=== PATIENT | male | born 1965 | race Caucasian/White ===

== ENCOUNTER 2016-08-24 12:30 | Inpatient (IN) | payer OTHER ==
[~2016-08-24] VITALS: Ht 180.3 cm; Wt 93.6 kg
[~2016-08-24 12:30] MED LIST: AMLO10TA4 PO; APR25 PO; CALC1TAB23 PO; CHOL2000 PO; CYCL1CAP22 PO; RCL25 PO; SODI650T9 PO
[2016-08-24] MEDS ORDERED: ASPI81TA28 PO (15:25)
[2016-08-24 15:30] VITALS: BP 172/94; PULSE 76; TEMP 36.6; Ht 180.3 cm; Wt 93.6 kg
[2016-08-24] MEDS ORDERED: ONDANSETRON INJ 2 MG/ML 2 ML VIAL IV PRN (15:30)
[2016-08-24] MEDS ORDERED: ACETAMINOPHEN 325 MG TAB PO PRN (15:30)
[2016-08-24] MEDS ORDERED: CALC667C4 PO (15:51)
[2016-08-24] MEDS ORDERED: VTMD PO (15:51)
[2016-08-24] MEDS ORDERED: APR50 PO (15:51)
--- NOTE | 2016-08-24 16:26 | History and Physical ---
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 Mason's office. Pt has a longstanding history of membranous nephropathy. Renal function has declined to the point that patient is now requiring dialysis. Plan is to have catheter placed tomorrow by Dr. Her so that dialysis can be initiated. Pt is currently feeling well and has no complaints. Pt denies fever/chills, chest pain, SOB, abd pain, N/V, bowel or bladder issues, worsening LE edema ,calf pain, lightheadedness/dizziness. Past Medical/Surgical History Medical Problems: (1) Chart history of sleep apnea Permanent Comment: never tested as per Status: Chronic (2) Dyslipidemia Status: Chronic (3) Dyslipidemia Status: Chronic (4) HTN (hypertension) Status: Chronic (5) Membranous glomerulonephritis Status: Chronic (6) Renal vein thrombosis Status: Chronic Surgical Problems: (1) S/p renal biopsy Status: Resolved Family History Diabetes mellitus MOTHER FH: CAD (coronary artery disease) FATHER BROTHER Social History Smoking Status: Former Smoker (2 cigs per day x 20 years; quit 08/02/2015) Alcohol Use: socially Drug Use: none Marital Status: Housing status: lives with family Occupational Status: employed Multi-Drug Resistant Organisms History of MDRO: No Allergies Coded Allergies: JOSSY Inhibitors (Verified Allergy, Unknown, UNKNOWN, 11/20/14) Losartan (Verified Allergy, Unknown, ., 11/20/14) NSAIDs (Verified Allergy, Unknown, ., 11/20/14) Home Medications Scheduled Amlodipine Besylate (Norvasc), 1 TAB PO DAILY Aspirin (Aspirin Ec), 81 PO DAILY Calcitriol (Calcitriol), 0.25 MCG PO MoWeFr@0900 Calcium Acetate (Phoslo 667 Mg), 3 CAPSULES PO WM Cyclosporine Modified (For Caesar (Cyclosporine Modified), 150 MG PO BID Ergocalciferol (Vitamin D), 50,000 UNITS PO DAILY Hydralazine HCl (Hydralazine HCl), 50 MG PO TID Sodium Bicarbonate (Sodium Bicarbonate), 650 MG PO BID Review of Systems Constitutional: No chills, No fatigue, No fever, No sweats, No weakness Eyes: No worsening of vision ENT: No hearing loss Respiratory: No cough, No shortness of breath Cardiovascular: + edema (chronic), No chest pain, No claudication Abdomen: No constipation, No diarrhea, No nausea, No pain, No vomiting Musculoskeletal: No calf pain Genitourinary - Male: No dysuria Neurologic: No weakness Psychiatric: No depression symptoms Endocrine: No fatigue Hematologic / Lymphatic: No abnormal bleeding/bruising Integumentary: No new/changing skin lesions Physical Exam General Appearance: WD/WN, no apparent distress, + pertinent finding (Pt is sitting in chair beside bed with in room ) Head: normocephalic, atraumatic Eyes: normal inspection ENT: hearing grossly normal Neck: supple Respiratory/Chest: chest non-tender, lungs clear, normal breath sounds, no respiratory distress Cardiovascular: regular rate, rhythm, no murmur Abdomen/GI: normal bowel sounds, non tender, soft Back: normal inspection Extremities/Musculoskelatal: normal inspection, no calf tenderness, + swelling (1+ pitting edema bilat) Neurologic/Psych: alert, normal mood/affect, oriented x 3 Skin: normal color, warm/dry Diagnostics Laboratory Results Results Past 24 Hours Test 08/24/16 15:27 Range/Units Impression Assessment and Plan ESRD WITH UNDERLYING MEMBRANOUS NEPHROPATHY pt sent as direct admit by Dr. Mason for ESRD requiring initiation of dialysis -admit to med/surg -obtain basic labs, CXR and EKG -cont Cyclosporine, sodium bicarb, calcitriol and PhosLo -consult nephro, Dr. Roach-pending input -consult Dr. Her-plan for dialysis catheter placement tmrw -monitor HTN -BP stable -cont Norvasc and hydralazine -monitor DYSLIPIDEMIA -diet-controlled DVT PROPHYLAXIS -subq heparin CODE STATUS -FULL CODE status DISPO -Pt seen in collaboration with Dr. Salgado. Please see his addendum for further details. Thanks! Of note: patient will be followed by Dr. Vasquez starting tomorrow. VTE Prophylaxis VTE Risk Assessment Done? Y/N: Yes Risk Level: Moderate Given or contraindicated: SCD's Note ATTENDING ADDENDUM Record reviewed. Patient interviewed and examined. Care coordinated with Jolie Cosby PA-C. Please refer to her documentation for patient's history. Briefly, 51 YO male with membranous nephropathy. Rising creatinine and worsening fluid retention. Being admitted for hemodialysis access and initiation of hemodialysis treatments. EXAM: General- no distress VS- as noted Neck- + JVD Lungs- clear Heart- RRR, II/ sys murmur at base Abdomen- + BS, soft, nontender Extremities- 3+ pretibial edema Neuro- alert DATA: Hgb 7.7. BUN 67, creatinine 7.3, K 4.4. Other lab studies as noted. ASSESSMENT AND PLAN: Progressive CKD, now in need of hemodialysis. Vascular Surgery consulted for vascular access. Nephrology consulted for dialysis management. Please refer to MAKEDA Cosby's documentation for discussion of other issues. Gama Salgado MD .
[2016-08-24] MEDS ORDERED: PNEUMOCOCCAL POLYSACCHARIDES 25 MCG/0.5 ML VIAL/SYR IM. ONE (16:30)
[2016-08-24] MEDS ORDERED: PNEUMOCOCCAL ADMINISTRATION CHARGE ONE (16:30)
--- NOTE | 2016-08-24 16:33 | DIAGNOSTIC IMAGING REPORT ---
CHEST 2 VIEWS ROUTINE CLINICAL HISTORY: End stage renal disease COMPARISON STUDY: No previous studies for comparison. FINDINGS: The cardiac and mediastinal contours are normal. There is no evidence of focal pulmonary consolidation. There is no evidence of failure. No pleural effusions are visualized.[ IMPRESSION: No active disease in the chest. Electronically signed by: Milad Webster M.D. 08/24/2016 4:32 PM Dictated Date/Time: 08/24/2016 4:31 PM
[2016-08-24 16:47] LABS: HEMATOCRIT 22.2 % (42-52); MEAN CELL VOLUME 86.7 fL (80-100); MEAN CORPUSCULAR HEMOGLOBIN 30.1 pg (25-34); MEAN CORPUSCULAR HGB CONC 34.7 g/dl (32-36); PLATELET COUNT 291 K/uL (130-400); RED BLOOD COUNT 2.56 M/uL (4.7-6.1); WHITE BLOOD COUNT 8.97 K/uL (4.8-10.8)
[2016-08-24 16:59] LABS: PROTHROMBIN TIME (PATIENT) 10.2 SECONDS (9.0-12.0)
[2016-08-24 17:19] LABS: BASO % 0.7 %; BASO ABS # 0.06 K/uL (0-0.2); COMPLETE YES; EOS % 2.5 %; IG% 0.2 %; LYMPH % 15.5 %; LYMPH ABS # 1.39 K/uL (1.2-3.4); MICROCYTOSIS PRESENT; NEUT % 76.1 %; OVALOCYTES 1+
[2016-08-24] MEDS: CALCIUM ACETATE 667MG GELCAP PO SCH (17:28)
[2016-08-24 17:36] LABS: ALB/GLOB RATIO 0.7 (0.9-2); BUN/CREATININE RATIO 9.2 (10-20); CALCIUM 8.4 mg/dl (8.5-10.1); CREATININE 7.3 mg/dl (0.60-1.40); MAGNESIUM 1.9 mg/dl (1.8-2.4); POTASSIUM 4.4 mmol/L (3.5-5.1)
[2016-08-24 19:06] LABS: HEPATITIS B AB POS
--- NOTE | 2016-08-24 20:07 | Nephrology Consultation ---
Nephrology Consultation Date of Consultation: Aug 24, 2016. Attending Physician: Dr Salgado Requesting Physician: Dr Salgado Reason for Consultation: CKD5 > ESRD needing dialysis History of Present Illness 51 year old male w/ recurrent membranous nephropathy despite CTX and progressive renal dysfunction now ESRD has had progressive worsening of creatinine and more edema: advised by Dr Mason to come to [facility] for direct admission to get tunnelled dialysis catheter and start chronic hemodialysis. Other PMH includes SANDEEP, renal vein thrombosis, HTN w/ hx of HTN urgency per outpt cardiology note d/t nonadherence. He has upcoming renal txplt eval late next month. He ultimately is interested in peritoneal dialysis but his renal function unfortunately deteriorated before this could be arranged. He remains on cyclosporine. Pt works full time staff interpreter and is anxious about how to blend work and dialysis treatment schedule. Plans to do HD in [facility]. States he has been off of lasix for some time. Past Medical/Surgical History Medical Problems: (1) Acute kidney injury superimposed on CKD Status: Acute (2) Anemia Status: Acute (3) Head ache Status: Acute (4) Hypertensive emergency Status: Acute as per HPI Family History Diabetes mellitus MOTHER FH: CAD (coronary artery disease) FATHER BROTHER Social History Smoking Status: Former Smoker (2 cigs per day x 20 years; quit 08/02/2015) Alcohol Use: none Drug Use: none Marital Status: Housing Status: lives with family Occupation Status: employed Allergies Coded Allergies: JOSSY Inhibitors (Verified Allergy, Unknown, UNKNOWN, 11/20/14) Losartan (Verified Allergy, Unknown, ., 11/20/14) NSAIDs (Verified Allergy, Unknown, ., 11/20/14) Medications Current Inpatient Medications Medications (Trade) Dose Ordered Sig/Martina Route Start Time Stop Time Status Last Admin Dose Admin Acetaminophen (Tylenol Tab) 650 mg Q4H PRN PO 08/24/16 15:30 09/23/16 15:29 Ondansetron HCl 4 mg 4 mg Q6H PRN IV 08/24/16 15:30 09/23/16 15:29 Cefazolin Sodium (Ancef 2000mg/60 ml D5W) 60 ml @ 100 mls/hr PREOP IV 08/25/16 06:00 08/25/16 18:00 Amlodipine Besylate (Norvasc Tab) 10 mg DAILY PO 08/25/16 08:00 09/24/16 07:59 Aspirin (Ecotrin Tab) 81 mg DAILY PO 08/25/16 08:00 09/24/16 07:59 Future Hold Calcitriol (Rocaltrol Cap) 0.25 mcg MoWeFr@0900 PO 08/25/16 09:00 09/24/16 08:59 Calcium Acetate (Phoslo Cap) 2,001 mg TIDM PO 08/24/16 17:00 09/23/16 19:59 08/24/16 17:28 2,001 MG Ergocalciferol (Vitamin D Cap) 50,000 interunit DAILY PO 08/25/16 08:00 09/24/16 07:59 Hydralazine HCl (Apresoline Tab) 50 mg TID PO 08/24/16 20:00 09/23/16 19:59 Sodium Bicarbonate (Sodium Bicarbonate Tab) 650 mg BID PO 08/24/16 20:00 09/23/16 19:59 Cyclosporine (Neoral Cap) 150 mg BID PO 08/24/16 20:00 09/23/16 19:59 Home Meds and Scripts Medications Dose Route/Sig Max Daily Dose Days Date Category Hydralazine HCl 50 Mg Tab 50 Mg PO TID 08/24/16 Reported Vitamin D (Ergocalciferol) 50,000 Interunit Cap 50,000 Units PO DAILY 08/24/16 Reported Phoslo 667 Mg (Calcium Acetate) 667 Mg Cap 3 Capsules PO WM 08/24/16 Reported Aspirin Ec (Aspirin) 81 Mg Tab 81 PO DAILY 08/24/16 Reported Calcitriol 0.25 Mcg Cap 0.25 Mcg PO MOWEFR@0900 30 06/07/16 Rx Sodium Bicarbonate 650 Mg Tab 650 Mg PO BID 30 06/07/16 Rx Norvasc (Amlodipine Besylate) 10 Mg Tab 1 Tab PO DAILY 90 06/07/16 Rx Cyclosporine Modified (Cyclosporine Modified (For Caesar) 50 Mg Cap 150 Mg PO BID 06/05/16 Reported Review of Systems Constitutional: No chills, No fatigue, No fever, No sweats, No weakness Eyes: No worsening of vision ENT: No hearing loss Respiratory: No cough, No dyspnea at rest, No dyspnea on exertion Cardiac: + edema, No chest pain, No palpitations Abdomen: + problem reported (denies anorexia), No diarrhea, No nausea, No pain , No vomiting Musculoskeletal: + swelling, No joint pain, No muscle pain Male : No dysuria, No hematuria, No urinary frequency Physical Exam Date Time Temp Pulse Resp B/P Pulse Ox O2 Delivery O2 Flow Rate FiO2 08/24/16 15:30 36.6 76 20 172/94 Room Air General Appearance: WD/WN, no apparent distress Eyes: EOMI ENT: hearing grossly normal Neck: supple Respiratory/Chest: no respiratory distress, no accessory muscle use, + decreased breath sounds Cardiovascular: regular rate, rhythm, + systolic murmur Abdomen: normal bowel sounds, non tender, soft Extremities: + pedal edema, + pertinent finding (edema to mid BL thighs; 3+ pedal) Neurologic/Psych: alert, normal mood/affect, oriented x 3 (ambulatory w/o asst) Skin: no jaundice, warm/dry, no rash (flushed fascies) Diagnostics Last 24 Hours Test 08/24/16 16:35 08/24/16 18:29 White Blood Count 8.97 K/uL Red Blood Count 2.56 M/uL Hemoglobin 7.7 g/dL Hematocrit 22.2 % Mean Corpuscular Volume 86.7 fL Mean Corpuscular Hemoglobin 30.1 pg Mean Corpuscular Hemoglobin Concent 34.7 g/dl Platelet Count 291 K/uL Mean Platelet Volume 9.0 fL Neutrophils (%) (Auto) 76.1 % Lymphocytes (%) (Auto) 15.5 % Monocytes (%) (Auto) 5.0 % Eosinophils (%) (Auto) 2.5 % Basophils (%) (Auto) 0.7 % Neutrophils # (Auto) 6.83 K/uL Lymphocytes # (Auto) 1.39 K/uL Monocytes # (Auto) 0.45 K/uL Eosinophils # (Auto) 0.22 K/uL Basophils # (Auto) 0.06 K/uL RDW Standard Deviation 43.7 fL RDW Coefficient of Variation 13.9 % Immature Granulocyte % (Auto) 0.2 % Immature Granulocyte # (Auto) 0.02 K/uL Microcytosis PRESENT Ovalocytes 1+ Prothrombin Time 10.2 SECONDS Prothromb Time International Ratio 1.0 Sodium Level 145 mmol/L Potassium Level 4.4 mmol/L Chloride Level 114 mmol/L Carbon Dioxide Level 20 mmol/L Anion Gap 11.0 mmol/L Blood Urea Nitrogen 67 mg/dl Creatinine 7.30 mg/dl Est Creatinine Clear Calc Drug Dose 13.8 ml/min Estimated GFR () 9.0 Estimated GFR (Non- 7.8 BUN/Creatinine Ratio 9.2 Random Glucose 119 mg/dl Calcium Level 8.4 mg/dl Magnesium Level 1.9 mg/dl Total Bilirubin 0.3 mg/dl Aspartate Amino Transf (AST/SGOT) 11 U/L Alanine Aminotransferase (ALT/SGPT) 14 U/L Alkaline Phosphatase 86 U/L Total Protein 5.9 gm/dl Albumin 2.4 gm/dl Globulin 3.5 gm/dl Albumin/Globulin Ratio 0.7 Diagnostic Radiology: CXR > no active cardiopulmonary disease EKG: NSR Assessment & Plan 51 y/o M w/ membranous nephropathy refractory to chemotherapy now w/ ESRD and uncontrolled HTN, notable anemia even in the setting of CKD 5 for a pt on outpt procrit. -for TDC placement tentatively in AM -for first dialysis treatment on 08/25, assuming TDC placed, then second tx on depending on whether / how quickly outpt HD can be arranged -daily bmp, cbc -continue cyclosporine for now and other outpt meds -will change some outpt meds once he actually starts HD -renal diet and 1. 5L fluid limit, < 2 gm daily Na pls -believe his bp will improve w/ routine administration of his medications >> no sx / signs of HTN emergency -will give aggressive procrit with HD; last labs in [facility] are hgb in low 9's in 06/2016; since then some issues w/ getting [facility] labs done and to [facility] anemia clinic > may have missed some epo doses -serum chemistries currently acceptable; no indication at this time for UA Appreciate consult; will follow with you.
[2016-08-24] MEDS: CycloSPORINE (NEORAL) 25 MG CAP PO SCH (20:10)
[2016-08-24] MEDS: SODIUM BICARBONATE 650 MG TAB PO SCH (20:11)
[2016-08-24 20:12] VITALS: BP 162/85; PULSE 73
[2016-08-25] VITALS (28 sets, daily range): BP systolic 136–176; BP diastolic 68–101; PULSE 63–80; TEMP 36.4–36.8; O2SAT 93–98
[2016-08-25] MEDS ORDERED: CEFAZOLIN 2000 MG/60 ML D5W 60 ML IV SCH (06:00)
[2016-08-25] MEDS: AMLODIPINE BESYLATE 5 MG TAB PO SCH ×2 (08:00→16:45)
[2016-08-25] MEDS ORDERED: ASPIRIN 81 MG ECTAB PO SCH (08:00)
[2016-08-25] MEDS: CALCIUM ACETATE 667MG GELCAP PO SCH ×3 (08:00→16:44)
[2016-08-25] MEDS ORDERED: EPOETIN ALFA 10,000 UNITS/ML VIAL IV. ONE (08:00)
[2016-08-25] MEDS ORDERED: ERGOCALCIFEROL 50,000 INTER.UNIT CAP PO SCH (08:00)
[2016-08-25] MEDS ORDERED: EPOETIN ALFA INJ 12,000 UNITS in SYRINGE 0 ML IV. SCH (08:00)
[2016-08-25] MEDS: SODIUM BICARBONATE 650 MG TAB PO SCH (08:00)
[2016-08-25] MEDS: CycloSPORINE (NEORAL) 25 MG CAP PO SCH (08:00)
[2016-08-25 08:20] LABS: HEMATOCRIT 20.3 % (42-52); MEAN CELL VOLUME 86.8 fL (80-100); MEAN CORPUSCULAR HEMOGLOBIN 30.3 pg (25-34); MEAN PLATELET VOLUME 9.5 fL (7.4-10.4); PLATELET COUNT 267 K/uL (130-400); RED BLOOD COUNT 2.34 M/uL (4.7-6.1); WHITE BLOOD COUNT 5.69 K/uL (4.8-10.8)
[2016-08-25 08:29] LABS: BUN/CREATININE RATIO 9.9 (10-20); CREATININE 7.2 mg/dl (0.60-1.40); POTASSIUM 4.4 mmol/L (3.5-5.1)
--- NOTE | 2016-08-25 08:42 | Surgery Consultation ---
Consultation Date of Service Aug 25, 2016. Chief Complaint acute on chronic renal failure History of Present Illness The patient is a 51 year old male with hx of CKD d/t membranous nephropathy, HTN , dyslipidemia, seen in consultation today for insertion of permcath for HD d/t acute on chronic renal failure. Pt states feeling ok. Denies SHAH, fever, chills , recent illness, chest pain, SOB, abd pain, N/V, rest pain, claudication, other complaints. Vitals Vital Signs Past 12 Hours Date Time Temp Pulse Resp B/P Pulse Ox O2 Delivery O2 Flow Rate FiO2 08/25/16 07:47 36.4 73 18 169/93 98 Room Air 08/25/16 00:50 36.8 73 20 136/68 93 Room Air 08/25/16 00:00 Room Air Allergies Coded Allergies: JOSSY Inhibitors (Verified Allergy, Unknown, UNKNOWN, 11/20/14) Losartan (Verified Allergy, Unknown, ., 11/20/14) NSAIDs (Verified Allergy, Unknown, ., 11/20/14) Home Medications Scheduled Amlodipine Besylate (Norvasc), 1 TAB PO DAILY Aspirin (Aspirin Ec), 81 PO DAILY Calcitriol (Calcitriol), 0.25 MCG PO MoWeFr@0900 Calcium Acetate (Phoslo 667 Mg), 3 CAPSULES PO WM Cyclosporine Modified (For Caesar (Cyclosporine Modified), 150 MG PO BID Ergocalciferol (Vitamin D), 50,000 UNITS PO DAILY Hydralazine HCl (Hydralazine HCl), 50 MG PO TID Sodium Bicarbonate (Sodium Bicarbonate), 650 MG PO BID Problem List Medical Problems: (1) Chart history of sleep apnea (2) Dyslipidemia (3) Dyslipidemia (4) ESRD (end stage renal disease) (5) HTN (hypertension) (6) Membranous glomerulonephritis (7) Renal vein thrombosis Surgical Problems: (1) S/p renal biopsy Surgical / Medical History Hx Cardiac Surgery: No Hx Abdominal Surgery: No Hx Cancer Surgery: No Hx Thoracic Surgery: No Hx Orthopedic: No Hx Urinary Tract Surgery: No HX Other Surgery: Yes Past Medical/Surgical History: High Cholesterol, Hypertension, Kidney Disease Family History Diabetes mellitus MOTHER FH: CAD (coronary artery disease) FATHER BROTHER Social History Smoking Status: Former Smoker (2 cigs per day x 20 years; quit 08/02/2015) Hx Tobacco Use In Past Year?: Yes Hx Alcohol Use - Type & Amnt: No Hx Substance Use -Type & Amnt: No Review of Systems Constitutional: No chills, No fever, No malaise Skin: No change in color Eyes: No visual changes ENMT: No sore throat Respiratory: No FOWLER, No cough, No hemoptysis, No short of breath Cardiovascular: No edema, No intermittent claudication Gastrointestinal: No abdominal pain, No nausea, No vomiting Neurologic: No dizziness, No headache, No lethargy, No numbness, No tingling Physical Exam Constitutional: General Apperance: well-nourished, well-developed Level of Distress: chronically ill (mildly) Ambulation: ambulating normally Psychiatric: Mental Status: active & alert, normal mood, normal affect Orientation: oriented except where noted, to time, to place, to person Memory: recent memory normal, remote memory normal Head: normocephalic, atraumatic Eyes: EOM: EOMI ENMT: normal ENT inspection, hearing grossly normal Neck: supple, trachea midline Lungs: Respiratory effort: no dyspnea Auscultation: breath sounds normal, no wheezing, no rales/crackles, no rhonchi Cardiovascular: Apical Impulse: not displaced Heart Auscultation: RRR, no murmurs, no rubs Peripheral Pulses: Pulses: full and equal, in all extremities except if noted Bruits: none appreciated Carotid Pulse: normal on the left, normal on the right Brachial Pulses: normal on the left, normal on the right Radial Pulse: normal on the left, normal on the right Femoral Pulse: normal on the left, normal on the right Posterior Tibialis Pulse: decreased on the left, decreased on the right Dorsalis Pedis Pulse: decreased on the left, decreased on the right Abdomen: Bowel Sounds: normal Inspection & Palpation: soft, non-distended, no tenderness, guarding & rebound Musculoskeletal: normal strength (5/5 throughout), normal tone Extremities: Upper Right: no cyanosis, no edema, no varicosities Upper Left: no cyanosis, no edema, no varicosities Lower Right: no cyanosis, no varicosities, edema (trace) Lower Left: no cyanosis, no varicosities, edema (trace) Neurologic: Cranial Nerves: grossly intact Sensation: grossly intact Assessment and Plan ASSESSMENT and PLAN: Acute on chronic renal failure Pt scheduled for permcath insertion later this AM. Procedure, risks, benefits, and alternatives discussed with pt, he expresses understanding and agreement.
[2016-08-25] MEDS ORDERED: CALCITRIOL 0.25 MCG CAP PO SCH (09:00)
--- NOTE | 2016-08-25 09:14 | Nephrology Progress Note ---
Nephrology Progress Note Date of Service: Aug 25, 2016. Subjective no c/o. still feels tired and admits generally unwell. npo for tdc today. no pain, dyspnea; no change in edema; no nausea; no chest discomfort. long discussion about fitting work and chronic dialysis >> best fit for him is [facility] 3rd shift Objective Date Time Temp Pulse Resp B/P Pulse Ox O2 Delivery O2 Flow Rate FiO2 08/25/16 07:47 36.4 73 18 169/93 98 Room Air 08/25/16 00:50 36.8 73 20 136/68 93 Room Air 08/25/16 00:00 Room Air 08/24/16 20:12 73 162/85 08/24/16 15:30 36.6 76 20 172/94 Room Air Physical Exam: General Appearance: WD/WN, no apparent distress, RA , maneuvers easily for exam Eyes: EOMI ENT: hearing grossly normal Neck: supple Respiratory/Chest: no respiratory distress, no accessory muscle use, + decreased breath sounds Cardiovascular: regular rate, rhythm, + systolic murmur Abdomen: normal bowel sounds, non tender, soft Extremities: + pedal edema, + pertinent finding (edema to mid BL thighs; 3+ pedal) Neurologic/Psych: alert, normal mood/affect, oriented x 3 (ambulatory w/o asst) Skin: no jaundice, warm/dry, no rash (flushed fascies) Current Inpatient Medications Medications (Trade) Dose Ordered Sig/Martina Route Start Time Stop Time Status Last Admin Dose Admin Acetaminophen (Tylenol Tab) 650 mg Q4H PRN PO 08/24/16 15:30 09/23/16 15:29 Ondansetron HCl 4 mg 4 mg Q6H PRN IV 08/24/16 15:30 09/23/16 15:29 Cefazolin Sodium (Ancef 2000mg/60 ml D5W) 60 ml @ 100 mls/hr PREOP IV 08/25/16 06:00 08/25/16 18:00 Amlodipine Besylate (Norvasc Tab) 10 mg DAILY PO 08/25/16 08:00 09/24/16 07:59 Aspirin (Ecotrin Tab) 81 mg DAILY PO 08/25/16 08:00 09/24/16 07:59 Future Hold Calcitriol (Rocaltrol Cap) 0.25 mcg MoWeFr@0900 PO 08/25/16 09:00 09/24/16 08:59 Calcium Acetate (Phoslo Cap) 2,001 mg TIDM PO 08/24/16 17:00 09/23/16 19:59 08/24/16 17:28 2,001 MG Ergocalciferol (Vitamin D Cap) 50,000 interunit DAILY PO 08/25/16 08:00 09/24/16 07:59 Hydralazine HCl (Apresoline Tab) 50 mg TID PO 08/24/16 20:00 09/23/16 19:59 08/24/16 20:08 50 MG Sodium Bicarbonate (Sodium Bicarbonate Tab) 650 mg BID PO 08/24/16 20:00 09/23/16 19:59 08/24/16 20:11 650 MG Cyclosporine (Neoral Cap) 150 mg BID PO 08/24/16 20:00 09/23/16 19:59 08/24/16 20:10 150 MG Heparin Sodium (Porcine) 1 ea 1 ea TODAY@0800 N/A 08/25/16 08:00 08/25/16 23:59 Epoetin Dani/ Syringe (Procrit Inj/ Syringe) 0.6 ml @ 1 mls/min TODAY@0800 IV. 08/25/16 08:00 08/25/16 23:59 Last 24 Hours Test 08/24/16 16:35 08/24/16 18:29 08/25/16 07:10 White Blood Count 8.97 K/uL 5.69 K/uL Red Blood Count 2.56 M/uL 2.34 M/uL Hemoglobin 7.7 g/dL 7.1 g/dL Hematocrit 22.2 % 20.3 % Mean Corpuscular Volume 86.7 fL 86.8 fL Mean Corpuscular Hemoglobin 30.1 pg 30.3 pg Mean Corpuscular Hemoglobin Concent 34.7 g/dl 35.0 g/dl Platelet Count 291 K/uL 267 K/uL Mean Platelet Volume 9.0 fL 9.5 fL Neutrophils (%) (Auto) 76.1 % Lymphocytes (%) (Auto) 15.5 % Monocytes (%) (Auto) 5.0 % Eosinophils (%) (Auto) 2.5 % Basophils (%) (Auto) 0.7 % Neutrophils # (Auto) 6.83 K/uL Lymphocytes # (Auto) 1.39 K/uL Monocytes # (Auto) 0.45 K/uL Eosinophils # (Auto) 0.22 K/uL Basophils # (Auto) 0.06 K/uL RDW Standard Deviation 43.7 fL 43.2 fL RDW Coefficient of Variation 13.9 % 13.7 % Immature Granulocyte % (Auto) 0.2 % Immature Granulocyte # (Auto) 0.02 K/uL Microcytosis PRESENT Ovalocytes 1+ Prothrombin Time 10.2 SECONDS Prothromb Time International Ratio 1.0 Sodium Level 145 mmol/L 140 mmol/L Potassium Level 4.4 mmol/L 4.4 mmol/L Chloride Level 114 mmol/L 110 mmol/L Carbon Dioxide Level 20 mmol/L 17 mmol/L Anion Gap 11.0 mmol/L 13.0 mmol/L Blood Urea Nitrogen 67 mg/dl 71 mg/dl Creatinine 7.30 mg/dl 7.20 mg/dl Est Creatinine Clear Calc Drug Dose 13.8 ml/min 14.0 ml/min Estimated GFR () 9.0 9.2 Estimated GFR (Non- 7.8 7.9 BUN/Creatinine Ratio 9.2 9.9 Random Glucose 119 mg/dl 89 mg/dl Calcium Level 8.4 mg/dl 8.0 mg/dl Magnesium Level 1.9 mg/dl Total Bilirubin 0.3 mg/dl Aspartate Amino Transf (AST/SGOT) 11 U/L Alanine Aminotransferase (ALT/SGPT) 14 U/L Alkaline Phosphatase 86 U/L Total Protein 5.9 gm/dl Albumin 2.4 gm/dl Globulin 3.5 gm/dl Albumin/Globulin Ratio 0.7 Hepatitis B Surface Antigen NEG Hepatitis B Surface Antibody POS Iron Level 87 mcg/dl Total Iron Binding Capacity 232 mcg/dl Transferrin 171 mg/dl Transferrin % Saturation 36 % Assessment & Plan 51 y/o M w/ membranous nephropathy refractory to chemotherapy now w/ ESRD and uncontrolled HTN, notable anemia even in the setting of CKD 5 for a pt on outpt procrit. -for TDC placement today around noon -for first dialysis treatment today, assuming TDC placed, then second tx on depending on whether / how quickly outpt HD can be arranged >> if he has outpt HD for Sunday, he could be d/c after dialysis today ->>>at discharge, pls stop calcitriol, sodium bicarbonate, and cyclosporine ( I stopped these in house) -daily bmp, cbc -renal diet and 1. 5L fluid limit, < 2 gm daily Na pls -defer to primary service whether to give pRBC; personally would prefer to avoid and use aggressive procrit w/ HD if possible -case mgt consult placed for urgent arrangement for dialysis at [facility] 3rd shift; I spent more than 20 minutes discussing his work life, work schedule, and possible dialysis times at 3 different units with this pt in order to decide on unit that fits best into his life; questions sought/answered -serum chemistries currently acceptable; no indication at this time for UA Appreciate consult; will follow with you. Care coordinated w/ MAKEDA Wallace
[2016-08-25] MEDS ORDERED: MIDAZOLAM HCL 1 MG/ML 2ML VIAL ONE (10:45)
[2016-08-25] MEDS ORDERED: FENTANYL CITRATE INJ 50 MCG/1 ML 2 ML VIAL ONE (10:45)
[2016-08-25] MEDS ORDERED: HEPARIN SOD (PORCINE) 5000 UNIT/ML 1 ML VIAL ONE (10:45)
--- NOTE | 2016-08-25 10:51 | Progress Note ---
Progress Note Date of Service Aug 25, 2016. Progress Note Patient for permcath insertion today. Patient was seen, examined, and chart reviewed. Agree with exam and treatment plan of the Vascular PA. I have discussed the risks options and benefits of the procedure with the patient. The patient understands the risks options and benefits and agrees to the procedure.
--- NOTE | 2016-08-25 10:51 | Procedure Note ---
Pre-Mod Sedation Assessment General Date of Moderate Sedation: Aug 25, 2016. Vital Signs: Vital Signs Past 12 Hours Date Time Temp Pulse Resp B/P Pulse Ox O2 Delivery O2 Flow Rate FiO2 08/25/16 10:25 36.4 73 18 169/93 98 Room Air 08/25/16 08:00 98 Room Air 08/25/16 07:47 36.4 73 18 169/93 98 Room Air 08/25/16 00:50 36.8 73 20 136/68 93 Room Air 08/25/16 00:00 Room Air Pre-Sedation Airway Assessment Oral Cavity: WNL Short Thick Neck: No Hx of Sleep Apnea: No Smoking Status: Former Smoker Mallampati Classification: Class I ASA Classification: Class II Notes The planned sedation has been discussed with the patient and consent obtained. I have identified the patient, determined the appropriateness of sedation and have assessed the patient immediately prior to the procedure. All medicine(s) and interventions are by my order.
[2016-08-25] MEDS ORDERED: EPOETIN ALFA IV. SCH (11:00)
[2016-08-25] MEDS ORDERED: FENTANYL CITRATE INJ 50 MCG/1 ML 2 ML VIAL IV ONE (11:22)
[2016-08-25] MEDS ORDERED: HEPARIN SOD (PORCINE) 5000 UNIT/ML 1 ML VIAL IV ONE (11:26)
[2016-08-25] MEDS ORDERED: MIDAZOLAM HCL 1 MG/ML 2ML VIAL IV ONE (11:26)
[2016-08-25] MEDS ORDERED: LIDOCAINE HCL 1% 20 ML VIAL SQ ONE (11:26)
--- NOTE | 2016-08-25 11:35 | Procedure Note ---
Post-Moderate Sedation Plan General Date of Moderate Sedation Aug 25, 2016. Vital Signs: Vital Signs Past 12 Hours Date Time Temp Pulse Resp B/P Pulse Ox O2 Delivery O2 Flow Rate FiO2 08/25/16 10:49 36.4 73 18 169/93 98 Room Air 08/25/16 10:25 36.4 73 18 169/93 98 Room Air 08/25/16 08:00 98 Room Air 08/25/16 07:47 36.4 73 18 169/93 98 Room Air 08/25/16 00:50 36.8 73 20 136/68 93 Room Air 08/25/16 00:00 Room Air Review - Discharge Plan Post Moderate Sedation Plan: On clinical assessment, the patient appears to have tolerated the conscious sedation without complications. Patient is recovering as anticipated. Patient will continue to be monitored by nursing and may be discharged when conscious sedation discharge criteria are met.
--- NOTE | 2016-08-25 11:37 | [facility] Post Operative Brief Note ---
Immediate Operative Summary Operative Date Aug 25, 2016. Pre-Operative Diagnosis End Stage Renal Disease Post-Operative Diagnosis Same Procedure(s) Performed Insertion of Perm Catheter, Right Internal Jugular Approach, Ultrasound Localization of the Right Internal Jugular Vein, Fluoroscopy for positioning, Moderate Sedation from 1122- [address] Her Water Mechanic Surgeon(s) None Estimated Blood Loss 5 Findings Tip in distal SVC Specimens None Anesthesia Local and moderate conscious sedation Complication(s) None Disposition
--- NOTE | 2016-08-25 11:54 | DIAGNOSTIC IMAGING REPORT ---
DATE OF PROCEDURE: 08/25/2016 PREOPERATIVE DIAGNOSIS: End-stage renal failure. POSTOPERATIVE DIAGNOSIS: Same. PROCEDURES: 1. Insertion of PermCath right internal jugular vein. 2. Ultrasound localization right internal jugular vein. 3. Fluoroscopic imaging for positioning. 4. Moderate conscious sedation 12 minutes. SURGEON: Dr. Her. ANESTHETIC: Local with conscious sedation. PROCEDURE INDICATIONS: The patient is a 51-year-old gentleman with acute renal failure in need of dialysis. PermCath was recommended. He understood the risks, options and benefits and agreed to go ahead with this procedure. OPERATION AND FINDINGS: The patient was taken to the angio suite and placed in the supine position. After right side of the neck and chest wall were prepped and draped in a sterile manner, local anesthetic was administered. Using ultrasound, the right internal jugular vein was imaged. It was of good caliber, compressed easily and was patent. A puncture was then made of the right internal jugular vein under ultrasound imaging. The wire was then passed centrally under fluoro. Wire passed into the inferior vena cava from above. Next, a stab wound was made in the anterior chest wall and 19 cm PermCath was inserted through the stab wound in the chest wall and brought out through the puncture site in the neck. The puncture site was then dilated until the 14-Honduran Peel-Away sheath was inserted. The catheter was then pushed down through the Peel-Away sheath and the Peel-Away sheath removed. Tip of the catheter lay in the distal superior vena cava. Catheter was sutured to the anterior chest wall. The puncture site was closed with interrupted 4-0 Vicryl subcuticular suture. Dermabond was used for a dressing for the puncture site. Both ports aspirated and flushed easily and were instilled with heparin. Sterile dressings were applied to the catheter and patient left the angio suite in good condition and tolerated the procedure well.
--- NOTE | 2016-08-25 18:30 | Progress Note ---
Subjective Date of Service: Aug 25, 2016. Subjective Pt evaluation today including: conversation w/ patient, conversation w/ family , physical exam, lab review, review of studies, conversation w/ child development consultant, review of inpatient medication list Saw/examined the patient in room 456-2 He had a tunneled catheter placed today as well as HD tolerated it well No symptoms noted after HD Problem List Medical Problems: (1) Acute kidney injury superimposed on CKD Status: Acute (2) Anemia Status: Acute (3) Head ache Status: Acute (4) Hypertensive emergency Status: Acute Review of Systems Constitutional: No chills, No fever Respiratory: No cough, No dyspnea on exertion, No shortness of breath, No sputum, No wheezing Cardiac: No chest pain, No edema, No palpitations Abdomen: No diarrhea, No nausea, No pain, No vomiting Male : No dysuria, No hematuria, No urinary frequency Medications Current Inpatient Medications Medications (Trade) Dose Ordered Sig/Martina Route Start Time Stop Time Status Last Admin Dose Admin Acetaminophen (Tylenol Tab) 650 mg Q4H PRN PO 08/24/16 15:30 09/23/16 15:29 Ondansetron HCl (Zofran Inj) 4 mg Q6H PRN IV 08/24/16 15:30 09/23/16 15:29 Amlodipine Besylate (Norvasc Tab) 10 mg DAILY PO 08/25/16 08:00 09/24/16 07:59 08/25/16 16:45 10 MG Aspirin (Ecotrin Tab) 81 mg DAILY PO 08/25/16 08:00 09/24/16 07:59 Future Hold Calcium Acetate (Phoslo Cap) 2,001 mg TIDM PO 08/24/16 17:00 09/23/16 19:59 08/25/16 16:44 2,001 MG Ergocalciferol (Vitamin D Cap) 50,000 interunit DAILY PO 08/25/16 08:00 09/24/16 07:59 Hydralazine HCl (Apresoline Tab) 50 mg TID PO 08/24/16 20:00 09/23/16 19:59 08/24/16 20:08 50 MG Heparin Sodium (Porcine) 1 ea 1 ea TODAY@0800 N/A 08/25/16 08:00 08/25/16 23:59 Epoetin Dani/ Syringe (Procrit Inj/ Syringe) 0.8 ml @ 1 mls/min TODAY@1100 IV. 08/25/16 11:00 08/25/16 20:00 Objective Vital Signs Date Time Temp Pulse Resp B/P Pulse Ox O2 Delivery O2 Flow Rate FiO2 08/25/16 18:00 36.7 79 18 156/87 95 Room Air 08/25/16 17:20 36.7 77 18 163/87 97 Room Air 08/25/16 16:41 96 Room Air 08/25/16 16:41 36.5 80 18 176/96 97 Room Air 08/25/16 16:30 79 170/98 08/25/16 16:00 77 168/100 08/25/16 15:45 71 170/90 08/25/16 15:30 77 163/96 08/25/16 15:15 73 168/100 08/25/16 15:00 74 173/101 08/25/16 14:45 73 173/101 08/25/16 14:30 64 164/96 08/25/16 14:15 67 170/97 08/25/16 14:08 69 167/91 08/25/16 14:00 36.6 69 175/96 08/25/16 13:35 36.6 63 18 162/87 96 Room Air 08/25/16 13:17 36.7 64 18 158/87 96 Room Air 08/25/16 13:00 36.4 65 18 169/80 97 Room Air 08/25/16 12:30 36.5 68 18 175/90 96 Room Air 08/25/16 12:20 36.7 64 20 171/91 97 Room Air 08/25/16 12:10 36.7 64 16 162/91 97 Room Air 08/25/16 12:00 36.7 63 16 144/98 97 Room Air 08/25/16 11:50 36.4 64 16 157/83 96 Room Air 08/25/16 10:49 36.4 73 18 169/93 98 Room Air 08/25/16 10:25 36.4 73 18 169/93 98 Room Air 08/25/16 08:00 98 Room Air 08/25/16 07:47 36.4 73 18 169/93 98 Room Air 08/25/16 00:50 36.8 73 20 136/68 93 Room Air 08/25/16 00:00 Room Air 08/24/16 20:12 73 162/85 Physical Exam General Appearance: no apparent distress Respiratory/Chest: lungs clear, normal breath sounds, no respiratory distress, no accessory muscle use, + pertinent finding (+TDC) Cardiovascular: regular rate, rhythm, no edema, no murmur Abdomen: normal bowel sounds, non tender, soft Extremities: normal inspection, no pedal edema Neurologic/Psychiatric: no motor/sensory deficits, alert, normal mood/affect Laboratory Results Last 24 Hours Test 08/24/16 18:29 08/25/16 07:10 Hepatitis B Surface Antigen NEG Hepatitis B Surface Antibody POS White Blood Count 5.69 K/uL Red Blood Count 2.34 M/uL Hemoglobin 7.1 g/dL Hematocrit 20.3 % Mean Corpuscular Volume 86.8 fL Mean Corpuscular Hemoglobin 30.3 pg Mean Corpuscular Hemoglobin Concent 35.0 g/dl RDW Standard Deviation 43.2 fL RDW Coefficient of Variation 13.7 % Platelet Count 267 K/uL Mean Platelet Volume 9.5 fL Sodium Level 140 mmol/L Potassium Level 4.4 mmol/L Chloride Level 110 mmol/L Carbon Dioxide Level 17 mmol/L Anion Gap 13.0 mmol/L Blood Urea Nitrogen 71 mg/dl Creatinine 7.20 mg/dl Est Creatinine Clear Calc Drug Dose 14.0 ml/min Estimated GFR () 9.2 Estimated GFR (Non- 7.9 BUN/Creatinine Ratio 9.9 Random Glucose 89 mg/dl Calcium Level 8.0 mg/dl Iron Level 87 mcg/dl Total Iron Binding Capacity 232 mcg/dl Transferrin 171 mg/dl Transferrin % Saturation 36 % Assessment and Plan This is a 51 year old male with PMH of 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, anemia of renal disease, HTN, HLD presents from nephrology office due to him now requiring dialysis ESRD secondary to Membranous Glomerulonephritis patient had a tunneled catheter placed as per vascular surgery first dialysis today (08/25) as per nephrology given Procrit with dialysis Plan is for second dialysis session on 08/26 Is set up with [facility] for 08/28 will have to stop calcitriol, sodium bicarb, and cyclosporine on discharge Anemia of Chronic Disease receiving procrit with dialysis Hgb around 7 monitor and transfuse if needed, with dialysis HTN currently requiring hydralazine TID as well as amlodipine still running higher; will wait for more fluid removal from dialysis may need additional antihypertensives on discharge DVT ppx SCDs FULL CODE
--- NOTE | 2016-08-25 19:02 | Discharge Instructions ---
Discharge Instructions Admission Reason for Admission: ESRD Discharge Discharge Diagnosis / Problem: ESRD Discharge Goals Goal(s): Decrease discomfort, Improve function, Learn about illness, Diagnostic testing, Therapeutic intervention Activity Recommendations Activity Limitations: resume your previous activity . Instructions / Follow-Up Instructions / Follow-Up Please follow-up with nephrology as an outpatient Please follow-up with your primary care physician as an outpatient You are to go to [facility] on Sunday, August 28, 2016 You can stop taking the calcitriol, sodium bicarbonate, and cyclosporine Current Hospital Diet Patient's current hospital diet: Regular Diet Discharge Diet Recommended Diet: Low Sodium Diet (2gm Na), Renal Diet Fluid Restriction: 1500 ml (6 cups) Procedures Procedures Performed: Insertion of Perm Catheter, Right Internal Jugular Approach, Ultrasound Localization of the Right Internal Jugular Vein, Fluoroscopy for positioning, Moderate Sedation from 1122- 1134 Pending Studies Studies pending at discharge: no Medical Emergencies . Who to Call and When: Medical Emergencies: If at any time you feel your situation is an emergency, please call 911 immediately. . Non-Emergent Contact Non-Emergency issues call your: Primary Care Provider, Ultrasound Coordinator . . "Provider Documentation" section prepared by Meche Vasquez. VTE Core Measure Inpt VTE Proph given/why not?: SCD's
--- NOTE | 2016-08-25 19:05 | Discharge Summary ---
Discharge Summary Date of Service Aug 25, 2016. Discharge Summary Admission Date: Aug 24, 2016 at 15:31 Discharge Date: Aug 25, 2016 Discharge Disposition: Home Principal Diagnosis: ESRD Membranous Glomerulonephropathy Anemia of Kidney Disease Medication Reconciliation Continued Medications: Amlodipine Besylate (Norvasc) 10 Mg Tab 1 TAB PO DAILY for 90 Days, #90 TAB 1 Refill NS Aspirin (Aspirin Ec) 81 Mg Tab 81 PO DAILY Calcium Acetate (Phoslo 667 Mg) 667 Mg Cap 3 CAPSULES PO WM, CAP Ergocalciferol (Vitamin D) 50,000 Interunit Cap 73913 UNITS PO DAILY Hydralazine HCl (Hydralazine HCl) 50 Mg Tab 50 MG PO TID Discontinued Medications: Calcitriol (Calcitriol) 0.25 Mcg Cap 0.25 MCG PO MoWeFr@0900 for 30 Days, #12 CAP Cyclosporine Modified (For Caesar (Cyclosporine Modified) 50 Mg Cap 150 MG PO BID, #180 Sodium Bicarbonate (Sodium Bicarbonate) 650 Mg Tab 650 MG PO BID for 30 Days, #60 TAB Admission Information HPI (per Admitting provider): This is a 51 y/o male with PMHx of ESRD due to underlying membranous nephropathy , HTN, Dyslipidemia and other problems as outlined below who presents as a direct admit from Dr. Mason's office. Pt has a longstanding history of membranous nephropathy. Renal function has declined to the point that patient is now requiring dialysis. Plan is to have catheter placed tomorrow by Dr. Her so that dialysis can be initiated. Pt is currently feeling well and has no complaints. Pt denies fever/chills, chest pain, SOB, abd pain, N/V, bowel or bladder issues, worsening LE edema ,calf pain, lightheadedness/dizziness. Physical Exam (per Admitting): General Appearance: WD/WN, no apparent distress, + pertinent finding (Pt is sitting in chair beside bed with in room ) Head: normocephalic, atraumatic Eyes: normal inspection ENT: hearing grossly normal Neck: supple Respiratory/Chest: chest non-tender, lungs clear, normal breath sounds, no respiratory distress Cardiovascular: regular rate, rhythm, no murmur Abdomen/GI: normal bowel sounds, non tender, soft Back: normal inspection Extremities/Musculoskelatal: normal inspection, no calf tenderness, + swelling (1+ pitting edema bilat) Neurologic/Psych: alert, normal mood/affect, oriented x 3 Skin: normal color, warm/dry Hospital Course This is a 51 year old male with PMH of 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, anemia of renal disease, HTN, HLD presents from nephrology office due to him now requiring dialysis ESRD secondary to Membranous Glomerulonephritis patient had a tunneled catheter placed as per vascular surgery first dialysis today (08/25) as per nephrology given Procrit with dialysis Plan is for second dialysis session on 08/26 Is set up with [facility] for 08/28 will have to stop calcitriol, sodium bicarb, and cyclosporine on discharge Anemia of Chronic Disease receiving procrit with dialysis Hgb around 7 monitor and transfuse if needed, with dialysis HTN currently requiring hydralazine TID as well as amlodipine still running higher; will wait for more fluid removal from dialysis may need additional antihypertensives on discharge DVT ppx SCDs FULL CODE Total time spent on discharge = 35 minutes This includes examination of the patient, discharge planning, medication reconciliation, and communication with other providers. Discharge Instructions Please follow-up with nephrology as an outpatient Please follow-up with your primary care physician as an outpatient You are to go to [facility] on Sunday, August 28, 2016 You can stop taking the calcitriol, sodium bicarbonate, and cyclosporine
[2016-10-02] MEDS ORDERED: AMLO-114 PO (08:36)
[2016-10-02] MEDS ORDERED: RENOVITE PO (08:37)
[2016-11-23] MEDS ORDERED: SEVE800T7 PO (16:41)
[2016-12-06] MEDS ORDERED: OXYC-57 PO (12:40)
== END 2016-08-25 19:20 | disposition home or self-care (01) | DRG 684 ==
LOC: UNDOADMIN 14:54 → C.MS4W 14:54
PROVIDERS: ADMIT Internal Medicine; ATTEND Family Medicine
PROC: 05HM33Z Insertion of Infusion Device into Right Internal Jugular Vein, Percutaneous Approach (ICD-10-PCS; principal; 2016-08-25 13:45)
DX: N18.6 End stage renal disease (principal); N02.2 Recurrent and persistent hematuria with diffuse membranous glomerulonephritis; N17.9 Acute kidney failure, unspecified; D63.1 Anemia in chronic kidney disease; I12.0 Hypertensive chronic kidney disease with stage 5 chronic kidney disease or end stage renal disease; E78.5 Hyperlipidemia, unspecified; Z99.2 Dependence on renal dialysis; Z87.891 Personal history of nicotine dependence; Z88.6 Allergy status to analgesic agent; Z88.8 Allergy status to other drugs, medicaments and biological substances; Z82.49 Family history of ischemic heart disease and other diseases of the circulatory system; Z83.3 Family history of diabetes mellitus; Z79.82 Long term (current) use of aspirin; Z79.899 Other long term (current) drug therapy

== ENCOUNTER 2016-10-06 09:11 | Day surgery (SDC) | payer OTHER ==
[2016-10-02 08:37] VITALS: BMI 28.0
--- NOTE | 2016-10-02 09:05 | PAT Medication Instructions ---
Service Date Oct 02, 2016. Current Home Medication List Amlodipine (Norvasc), 10 MG PO QAM Aspirin (Aspirin Ec), 81 PO QAM Calcium Acetate (Phoslo 667 Mg), 2 CAPSULES PO WM Ergocalciferol (Vitamin D), 50,000 UNITS PO QAM Hydralazine HCl (Hydralazine HCl), 50 MG PO TID [Renovite], 1 TAB PO QPM Medication Instructions For Your Scheduled Surgery Calcium Acetate (Phoslo 667 Mg), 2 CAPSULES PO WM (not taking currently) - Hold the following medications the morning of surgery: Ergocalciferol (Vitamin D), 50,000 UNITS PO QAM - Take the following medications the morning of surgery with a sip of water: Hydralazine HCl (Hydralazine HCl), 50 MG PO TID Amlodipine (Norvasc), 10 MG PO QAM Aspirin (Aspirin Ec), 81 PO QAM - Take the following medications as scheduled the night before surgery: Renovite 1 TAB PO QPM Hydralazine HCl (Hydralazine HCl), 50 MG PO TID If you have any questions please call us at [phone] or [phone] ( [place]) or [phone]
[2016-10-02 10:16] LABS: BASO % 1.2 %; BASO ABS # 0.08 K/uL (0-0.2); COMPLETE YES; EOS % 6.4 %; HEMATOCRIT 34.8 % (42-52); IG% 0.3 %; LYMPH % 19.8 %; LYMPH ABS # 1.32 K/uL (1.2-3.4); MEAN CELL VOLUME 92.8 fL (80-100); MEAN CORPUSCULAR HEMOGLOBIN 30.7 pg (25-34); MEAN PLATELET VOLUME 10.2 fL (7.4-10.4); MONO % 6.6 %; NEUT % 65.7 %; PLATELET COUNT 239 K/uL (130-400); RED BLOOD COUNT 3.75 M/uL (4.7-6.1); WHITE BLOOD COUNT 6.68 K/uL (4.8-10.8)
[2016-10-02 10:24] LABS: PROTHROMBIN TIME (PATIENT) 10.2 SECONDS (9.0-12.0)
[2016-10-02 10:55] LABS: BUN/CREATININE RATIO 7.2 (10-20); CREATININE 8.1 mg/dl (0.60-1.40)
[~2016-10-06] VITALS: Ht 177.8 cm; Wt 89.5 kg
[~2016-10-06 09:11] MED LIST changes: +AMLO-114 PO; -AMLO10TA4 PO; -APR25 PO; +APR50 PO; +ASPI81TA28 PO; -CALC1TAB23 PO; +CALC667C4 PO; +CEFAZOLIN 2000 MG/60 ML D5W IV SCH; -CHOL2000 PO; -CYCL1CAP22 PO; +D5W AND 1/4NSS 1,000 ML IV SCH; -RCL25 PO; +RENOVITE PO; -SODI650T9 PO; +VTMD PO
[2016-10-06 09:33] VITALS: BP 154/80; PULSE 75; TEMP 36.7; O2SAT 96; Ht 177.8 cm; Wt 89.5 kg
--- NOTE | 2016-10-06 10:36 | Procedure Note ---
Pre-Mod Sedation Assessment General Date of Moderate Sedation: Oct 06, 2016. Vital Signs: Vital Signs Past 12 Hours Date Time Temp Pulse Resp B/P Pulse Ox O2 Delivery O2 Flow Rate FiO2 10/06/16 09:33 36.7 75 18 154/80 96 Room Air Pre-Sedation Airway Assessment Oral Cavity: WNL Short Thick Neck: No Hx of Sleep Apnea: No Smoking Status: Former Smoker Mallampati Classification: Class I ASA Classification: Class II Notes The planned sedation has been discussed with the patient and consent obtained. I have identified the patient, determined the appropriateness of sedation and have assessed the patient immediately prior to the procedure. All medicine(s) and interventions are by my order.
--- NOTE | 2016-10-06 10:36 | History and Physical ---
History & Physical Date of Service Oct 06, 2016. History & Physical Chief Complaint Malfunctioning permcath History of Present Illness The patient is a 51 year old male with hx of CKD d/t membranous nephropathy, HTN , dyslipidemia. He had a permcath for HD inserted d/t acute on chronic renal failure. The permcath is not running well. Denies SHAH, fever, chills, recent illness, chest pain, SOB, abd pain, N/V, rest pain, claudication, other complaints. Allergies Coded Allergies: JOSSY Inhibitors (Verified Allergy, Unknown, UNKNOWN, 11/20/14) Losartan (Verified Allergy, Unknown, ., 11/20/14) NSAIDs (Verified Allergy, Unknown, ., 11/20/14) Home Medications Scheduled Amlodipine Besylate (Norvasc), 1 TAB PO DAILY Aspirin (Aspirin Ec), 81 PO DAILY Calcitriol (Calcitriol), 0.25 MCG PO MoWeFr@0900 Calcium Acetate (Phoslo 667 Mg), 3 CAPSULES PO WM Cyclosporine Modified (For Caesar (Cyclosporine Modified), 150 MG PO BID Ergocalciferol (Vitamin D), 50,000 UNITS PO DAILY Hydralazine HCl (Hydralazine HCl), 50 MG PO TID Sodium Bicarbonate (Sodium Bicarbonate), 650 MG PO BID Problem List Medical Problems: (1) Chart history of sleep apnea (2) Dyslipidemia (3) Dyslipidemia (4) ESRD (end stage renal disease) (5) HTN (hypertension) (6) Membranous glomerulonephritis (7) Renal vein thrombosis Surgical Problems: (1) S/p renal biopsy Surgical / Medical History Hx Cardiac Surgery: No Hx Abdominal Surgery: No Hx Cancer Surgery: No Hx Thoracic Surgery: No Hx Orthopedic: No Hx Urinary Tract Surgery: No HX Other Surgery: Yes Past Medical/Surgical History: High Cholesterol, Hypertension, Kidney Disease Family History Diabetes mellitus MOTHER FH: CAD (coronary artery disease) FATHER BROTHER Social History Smoking Status: Former Smoker (2 cigs per day x 20 years; quit 08/02/2015) Hx Tobacco Use In Past Year?: Yes Hx Alcohol Use - Type & Amnt: No Hx Substance Use -Type & Amnt: No Review of Systems Constitutional: No chills, No fever, No malaise Skin: No change in color Eyes: No visual changes ENMT: No sore throat Respiratory: No FOWLER, No cough, No hemoptysis, No short of breath Cardiovascular: No edema, No intermittent claudication Gastrointestinal: No abdominal pain, No nausea, No vomiting Neurologic: No dizziness, No headache, No lethargy, No numbness, No tingling Physical Exam Constitutional: General Apperance: well-nourished, well-developed Level of Distress: chronically ill (mildly) Ambulation: ambulating normally Psychiatric: Mental Status: active & alert, normal mood, normal affect Orientation: oriented except where noted, to time, to place, to person Memory: recent memory normal, remote memory normal Head: normocephalic, atraumatic Eyes: EOM: EOMI ENMT: normal ENT inspection, hearing grossly normal Neck: supple, trachea midline Lungs: Respiratory effort: no dyspnea Auscultation: breath sounds normal, no wheezing, no rales/crackles, no rhonchi Cardiovascular: Apical Impulse: not displaced Heart Auscultation: RRR, no murmurs, no rubs Peripheral Pulses: Pulses: full and equal, in all extremities except if noted Bruits: none appreciated Carotid Pulse: normal on the left, normal on the right Brachial Pulses: normal on the left, normal on the right Radial Pulse: normal on the left, normal on the right Femoral Pulse: normal on the left, normal on the right Posterior Tibialis Pulse: decreased on the left, decreased on the right Dorsalis Pedis Pulse: decreased on the left, decreased on the right Abdomen: Bowel Sounds: normal Inspection & Palpation: soft, non-distended, no tenderness, guarding & rebound Musculoskeletal: normal strength (5/5 throughout), normal tone Extremities: Upper Right: no cyanosis, no edema, no varicosities Upper Left: no cyanosis, no edema, no varicosities Lower Right: no cyanosis, no varicosities, edema (trace) Lower Left: no cyanosis, no varicosities, edema (trace) Neurologic: Cranial Nerves: grossly intact Sensation: grossly intact Assessment and Plan ASSESSMENT and PLAN: End stage renal disease Malfunctioning permcath Plan: Patient for exchange of his permcath. I have discussed the risks options and benefits of the procedure with the patient. The patient understands the risks options and benefits and agrees to the procedure.
[2016-10-06 12:00] VITALS: BP 154/80; PULSE 75; TEMP 36.7; O2SAT 96
[2016-10-06] MEDS ORDERED: FENTANYL CITRATE INJ 50 MCG/1 ML 2 ML VIAL ONE (12:04)
[2016-10-06] MEDS ORDERED: HEPARIN SOD (PORCINE) 5000 UNIT/ML 1 ML VIAL ONE (12:04)
[2016-10-06] MEDS ORDERED: MIDAZOLAM HCL 1 MG/ML 2ML VIAL ONE (12:04)
[2016-10-06] MEDS ORDERED: LIDOCAINE HCL 1% 20 ML VIAL SQ ONE (12:20)
[2016-10-06] MEDS ORDERED: HEPARIN SOD (PORCINE) 5000 UNIT/ML 1 ML VIAL IV ONE (12:37)
--- NOTE | 2016-10-06 12:38 | [facility] Post Operative Brief Note ---
Immediate Operative Summary Operative Date Oct 06, 2016. Pre-Operative Diagnosis Malfunctioning Perm Catheter Post-Operative Diagnosis Same Procedure(s) Performed Exchange of Perm Catheter Surgeon Dr. Her Dust Operator Surgeon(s) Dr. Meade Estimated Blood Loss 5 Findings tip in distal SVC Specimens A: Explant Perm Catheter Anesthesia Local Complication(s) None Disposition
--- NOTE | 2016-10-06 12:41 | Discharge Instructions ---
Discharge Instructions Date of Service Oct 06, 2016. Visit Reason for Visit: End Stage Renal Disease Discharge Discharge Diagnosis / Problem: malfunctioning permcath Discharge Goals Goal(s): Therapeutic intervention Activity Recommendations Activity Limitations: per Instructions/Follow-up section Anesthesia . Post Anesthesia Instructions: If you have had General Anesthesia or IV Sedation: * Do not drive today. * Resume driving when surgeon permits. * Do not make important decisions or sign legal documents today. * Call surgeon for: 1. Temperature elevations greater than 101 degrees F. 2. Uncontrollable pain. 3. Excessive bleeding. 4. Persistent nausea and vomiting. 5. Medication intolerance (nausea, vomiting or rash). * For nausea and vomiting use only clear liquids such as: tea, soda, bouillon until nausea subsides, then gradually increase diet as tolerated. * If you have any concerns or questions, call your surgeon's office. If physician is unavailable and it is an emergency, call 911 or go to the nearest emergency room. . Instructions / Follow-Up Instructions / Follow-Up .nofu Take this to dialysis with you May use permcath for dialysis SPECIAL CARE INSTRUCTIONS: Medications: * Continue to take your medications as directed. If you have been given a prescription for Plavix, please fill it immediately and take as directed. Incision Care: * Your puncture site may have some bruising and minor swelling for about one week. * You will have a small dressing covering your puncture site. You may remove the dressing after 24 hours and shower. You may let the warm soapy water run over it, but be sure to dry the puncture site well and keep it dry. * DO NOT IMMERSE THE INCISION IN A TUB/POOL/etc. UNTIL HEALED. * Puncture sites should be kept covered with a band-aid until it begins to heal. Restrictions: * Depending on whether you leg or arm was punctured to access the arteries, you will be required to lay flat, hold your arm still, or both, for about 4 hours after the procedure to prevent bleeding. * Limit your activity for the first 48 hours. You may walk and go up and down steps. Avoid excessive bending or movement at the puncture site. Possible Complications: * Excessive Swelling - after blood flow is improved you may notice increased swelling in the lower legs. This is a normal response. This usually depends on the amount of blockages in the leg, how long they have been there prior to your procedure and how much blood flow was restored. Elevating your legs will help to improve this. Please notify our office ([phone] ) if the swelling does not go away after lying in bed overnight. * Infection/Drainage/Bleeding - Drainage or bleeding from the puncture site should be minimal. If you have excessive bleeding or drainage, call our office ([phone]) right away. * Pain - You may experience some mild pain or soreness at your puncture site. If your pain does not improve, please contact our office ([phone]). Call your doctor and seek emergent treatment if you develop: * Temperature above 101 degrees * Any fever or chills * Any redness or purulent drainage from the puncture site * Any new dusky/blue colored toes or feet with coolness or sharp or aching pain. SKIN IRRITATION: * You may experience some redness and/or swelling in the area where radiation was administered. If any skin irritation occurs, please contact your family physician. FOLLOW UP VISIT: Keep any scheduled doctor appointments. Diet Recommendations Recommended Home Diet: resume previous diet Procedures Procedures Performed: Exchange of Perm Catheter Pending Studies Studies pending at discharge: no Medical Emergencies . Who to Call and When: Medical Emergencies: If at any time you feel your situation is an emergency, please call 911 immediately. . Non-Emergent Contact Non-Emergency issues call your: Surgeon . . "Provider Documentation" section prepared by Surinder Her.
[2016-10-06 12:55] VITALS: BP 175/81; PULSE 77; TEMP 36.8; O2SAT 97
--- NOTE | 2016-10-06 12:58 | DIAGNOSTIC IMAGING REPORT ---
DATE OF PROCEDURE: 10/06/2016 PREOPERATIVE DIAGNOSIS: Malfunctioning tunneled dialysis catheter. POSTOPERATIVE DIAGNOSIS: Same. PROCEDURE: Exchange of right internal jugular tunneled hemodialysis catheter. SURGEON: Dr. Surinder Her. CLAMPER: Dr. Cindy Meade. ANESTHESIA: Local. ESTIMATED BLOOD LOSS: 5 mL COMPLICATIONS: None apparent. CONDITION: Stable to PACU. MILLIGRAYS: 2. FLUOROSCOPY TIME: 0.9 minutes. INDICATIONS: Edi Corona is a 51-year-old male who had a tunneled hemodialysis line placed in August. This had been working well until recently when it malfunctioned on Sunday. He was advised of the risks and benefits of exchange and agreed to undergo the procedure. PROCEDURE IN DETAIL: The patient was brought to the operative suite. He was prepped and draped in the usual fashion. Timeout occurred. A wire was passed through his old tunneled hemodialysis catheter into the superior vena cava. The old hemodialysis catheter was anesthetized with local anesthetic and was freed bluntly with a hemostat and was withdrawn over the wire. A new tunneled hemodialysis catheter was placed over the wire into his superior vena cava. Position was confirmed under fluoroscopy. New hemodialysis catheter was sutured in place. The patient tolerated the procedure well. Dr. Surinder Her was present for the entirety of the case.
[2016-10-06 13:10] VITALS: BP 166/84; PULSE 80; O2SAT 98
[2016-10-06 13:25] VITALS: BP 163/82; PULSE 76; O2SAT 97
[2016-11-23] MEDS ORDERED: SEVE800T7 PO (16:41)
[2016-12-06] MEDS ORDERED: OXYC-57 PO (12:40)
== END 2016-10-06 13:35 | disposition home or self-care (01) ==
LOC: C.ACU 09:11
PROVIDERS: ATTEND Surgery Vascular Surgery
DX: T82.49XA Other complication of vascular dialysis catheter, initial encounter (principal); N18.6 End stage renal disease; Y83.8 Other surgical procedures as the cause of abnormal reaction of the patient, or of later complication, without mention of misadventure at the time of the procedure; I12.0 Hypertensive chronic kidney disease with stage 5 chronic kidney disease or end stage renal disease; E78.00 Pure hypercholesterolemia, unspecified; E78.5 Hyperlipidemia, unspecified; Z79.82 Long term (current) use of aspirin; Z79.899 Other long term (current) drug therapy; Z83.3 Family history of diabetes mellitus; Z87.891 Personal history of nicotine dependence

== ENCOUNTER → 2016-10-16 | Day surgery (SDC) | payer OTHER ==
[2016-10-12 16:03] VITALS: BMI 28.0
[~2016-10-16] VITALS: Ht 177.8 cm; Wt 89.5 kg
[~2016-10-16] MED LIST changes: -CEFAZOLIN 2000 MG/60 ML D5W IV SCH; -D5W AND 1/4NSS 1,000 ML IV SCH; +LIDOCAINE HCL 2% 2 ML VIAL (20MG/ML) ONE; +OXYC-57 PO; +PROPOFOL IV EMULSION 10 MG/ML 20 ML VIAL IV ONE; +SEVE800T7 PO; +SODIUM CHLORIDE 0.9% 500ML 500 ML IV ONE
[2016-10-16 08:24] VITALS: Ht 177.8 cm; Wt 89.5 kg
--- NOTE | 2016-10-16 09:23 | Endo History and Physical ---
History & Physical Date of Service: Oct 16, 2016. Chief Complaint: screening for kidney transplant Referring Physician: Dr Marin History of Present Illness screening colonoscopy Past Surgical History Hx Cardiac Surgery: No Hx Internal Defibrillator: No Hx Pacemaker: No Hx Abdominal Surgery: No Hx of Implantable Prosthesis: No Hx Post-Op Nausea and Vomiting: No Hx Cancer Surgery: No Hx Thoracic Surgery: No Hx Orthopedic: No Hx Urinary Tract Surgery: No Family History IBD Social History Smoking Status: Former Smoker Hx Substance Use: No Hx Alcohol Use: No Allergies Coded Allergies: JOSSY Inhibitors (Verified Allergy, Unknown, UNKNOWN, 10/12/16) Losartan (Verified Allergy, Unknown, unknow, 10/12/16) NSAIDs (Verified Allergy, Unknown, NOT TO USE DUE TO KIDNEY, 10/12/16) Current Medications Reported Home Medications Medications Dose Route/Sig Max Daily Dose Days Date Category Dose Instructions [Renovite] 1 Tab PO QPM 10/02/16 Reported Norvasc (Amlodipine Besylate) 10 Mg Tab 10 Mg PO QAM 10/02/16 Reported Hydralazine HCl 50 Mg Tab 50 Mg PO TID 08/24/16 Reported Vitamin D (Ergocalciferol) 50,000 Interunit Cap 50,000 Units PO QAM 08/24/16 Reported Phoslo 667 Mg (Calcium Acetate) 667 Mg Cap 2 Capsules PO WM 08/24/16 Reported 1 TAB WITH SNACKS Aspirin Ec (Aspirin) 81 Mg Tab 81 PO QAM 08/24/16 Reported Vital Signs Weight (Kilograms): 89.55 Height (Feet): 5 Height (Inches): 10 Date Time Temp Pulse Resp B/P Pulse Ox O2 Delivery O2 Flow Rate FiO2 10/16/16 08:38 36.7 81 18 137/82 97 Room Air Physical Exam General Appearance: no apparent distress Respiratory/Chest: Auscultation: breath sounds normal Cardiovascular: Heart Auscultation: RRR Abdomen: Inspection & Palpation: soft, no masses Liver: non-tender Assessment and Plan stable for screening colo
[2016-10-16 09:34] LABS: BUN/CREATININE RATIO 4.2 (10-20); CALCIUM 8.7 mg/dl (8.5-10.1); CREATININE 8.2 mg/dl (0.60-1.40)
--- NOTE | 2016-10-16 10:42 | Discharge Instructions ---
Endoscopy Patient Instructions Date / Procedure(s) Performed Oct 16, 2016. Colonoscopy Allergy Information Coded Allergies: JOSSY Inhibitors (Verified Allergy, Unknown, UNKNOWN, 10/12/16) Losartan (Verified Allergy, Unknown, unknow, 10/12/16) NSAIDs (Verified Allergy, Unknown, NOT TO USE DUE TO KIDNEY, 10/12/16) Discharge Date / Findings Oct 16, 2016. colon polyps diverticulosis Provider Instructions Activity Restrictions - No exercising or heavy lifting for 24 hours. - Do not drink alcohol the day of the procedure. - Do not drive a car or operate machinery until the day after the procedure. - Do not make any important decisions or sign important papers in 24 hours after the procedure. Following Day: - Return to full activity which may include returning to work/school. Diet Start your diet with liquids and light foods (jello, soup, juice, toast). Then eat your usual diet if not nauseated. Treatment For Common After Affects For mild abdominal pain, bloating, or excessive gas: - Rest - Eat lightly - Lie on right side Follow-Up Information Follow-up with Dr Marin as scheduled Anesthesia Information What You Should Know You have had a procedure that required some medicine to reduce anxiety and discomfort. This treatment is called moderate sedation. After receiving the treatment, you may be sleepy, but you will be able to breathe on your own. The effects of the treatment may last for several hours. Follow these instructions along with Activity/Diet recommendations noted above: * Do NOT do anything where dizziness or clumsiness would be dangerous. * Rest quietly at home today, then you can be up and about tomorrow. * Have a responsible person stay with you the rest of today. * You may have had an I.V. today. If so, you may take the dressing off later today. Recommendations Call your doctor if: * Trouble breathing * Continuous vomiting for more than 24 hours * Temperature above 101 degrees * Severe abdominal pain or bloating * Pain not relieved by pain medicine ordered * There is increased drainage or redness from any incision * A large amount of rectal bleeding greater than 2-3 tablespoons. (If you had a polyp/s removed or have hemorrhoids, a small amount of blood - from the rectum is to be expected.) * You have any unanswered questions or concerns. IN THE EVENT OF A SERIOUS EMERGENCY, GO TO THE NEAREST EMERGENCY ROOM Your discharge instructions were prepared by provider Chino Griffin. Patient Instructions Signature Page Edi Corona Patient (or Guardian) Signature/Date: I have read and understand the instructions given to me by my caregivers. Caregiver/RN/Doctor Signature/Date: The above-named patient and/or guardian has received patient instructions on this date. + Original Patient Signature Page (only) stays with chart. Please make copy for patient.
--- NOTE | 2016-10-16 10:47 | GI REPORT ---
Procedure Date: 10/16/2016 9:22 AM Procedure: Colonoscopy Indications: Screening for colorectal malignant neoplasm Medicines: See the Anesthesia note for documentation of the administered medications Complications: No immediate complications. Estimated Blood Loss: Estimated blood loss was minimal. Procedure: Pre-Anesthesia Assessment: - Prior to the procedure, a History and Physical was performed, and patient medications, allergies and sensitivities were reviewed. The patient's tolerance of previous anesthesia was reviewed. - The risks and benefits of the procedure and the sedation options and risks were discussed with the patient. All questions were answered and informed consent was obtained. - Patient identification and proposed procedure were verified prior to the procedure by the physician and the nurse. The procedure was verified in the pre-procedure area. - Pre-procedure physical examination revealed no contraindications to sedation. - After reviewing the risks and benefits, the patient was deemed in satisfactory condition to undergo the procedure. After I obtained informed consent, the scope was passed under direct vision. Throughout the procedure, the patient's blood pressure, pulse, and oxygen saturations were monitored continuously. The Scope was introduced through the anus and advanced to the cecum, identified by appendiceal orifice and ileocecal valve. The colonoscopy was performed without difficulty. The patient tolerated the procedure well. The quality of the bowel preparation was good. Findings: The perianal and digital rectal examinations were normal. A 6 mm polyp was found at the ileocecal valve. The polyp was sessile. The polyp was removed with a cold snare. Resection and retrieval were complete. Verification of patient identification for the specimen was done by the physician and nurse using the patient's name and medical record number. Estimated blood loss was minimal. A 10 mm polyp was found at 20 cm proximal to the anus. The polyp was semi-pedunculated. The polyp was removed with a hot snare. Resection and retrieval were complete. Verification of patient identification for the specimen was done by the physician and nurse using the patient's name and medical record number. Estimated blood loss was minimal. Two sessile polyps were found in the recto-sigmoid colon. The polyps were small in size. These polyps were removed with a cold snare. Resection and retrieval were complete. Verification of patient identification for the specimen was done by the physician and nurse using the patient's name and medical record number. Estimated blood loss was minimal. Many small-mouthed diverticula were found in the sigmoid colon. No additional abnormalities were found on retroflexion. Impression: - One 6 mm polyp at the ileocecal valve, removed with a cold snare. Resected and retrieved. - One 10 mm polyp at 20 cm proximal to the anus, removed with a hot snare. Resected and retrieved. - Two small polyps at the recto-sigmoid colon, removed with a cold snare. Resected and retrieved. - Diverticulosis in the sigmoid colon. Recommendation: - Await pathology results. - Discharge patient to home. Chino Griffin M.D. Chino Griffin MD 10/16/2016 10:46:16 AM This report has been signed electronically. Note Initiated On: 10/16/2016 9:22 AM I attest to the content of the Intraoperative Record and orders documented therein, exceptions below
[2016-10-16 11:17] VITALS: BP 114/60; PULSE 67; O2SAT 99
--- NOTE | 2016-10-16 11:47 | Anesthesiology Progress Note ---
Anesthesia Post Op Note Date & Time Oct 16, 2016 at 11:46 Vital Signs Vital Signs Past 12 Hours Date Time Temp Pulse Resp B/P Pulse Ox O2 Delivery O2 Flow Rate FiO2 10/16/16 11:17 67 20 114/60 99 Room Air 10/16/16 11:02 69 20 111/62 98 Room Air 10/16/16 10:47 77 20 113/63 97 Room Air 10/16/16 08:38 36.7 81 18 137/82 97 Room Air Notes Mental Status: alert / awake / arousable, participated in evaluation Pt Amnestic to Procedure: Yes Nausea / Vomiting: adequately controlled Pain: adequately controlled Airway Patency, RR, SpO2: stable & adequate BP & HR: stable & adequate Hydration State: stable & adequate Anesthetic Complications: no major complications apparent
== END | disposition home or self-care (01) ==
LOC: C.GI 07:54
PROVIDERS: ATTEND Internal Medicine Gastroenterology
DX: Z12.11 Encounter for screening for malignant neoplasm of colon (principal); D12.5 Benign neoplasm of sigmoid colon; K57.30 Diverticulosis of large intestine without perforation or abscess without bleeding; Z87.891 Personal history of nicotine dependence; Z94.0 Kidney transplant status

== ENCOUNTER 2017-02-09 10:57 | Day surgery (SDC) | payer OTHER ==
[~2017-02-09] VITALS: Ht 177.8 cm; Wt 88.9 kg
--- NOTE | 2017-02-09 06:05 | History and Physical ---
History & Physical Date of Service Feb 09, 2017. History & Physical Chief Complaint End stage renal disease, functioning PD catheter History of Present Illness The patient is a 51 year old male with hx of CKD d/t membranous nephropathy, HTN , dyslipidemia. He had a permcath for HD inserted d/t acute on chronic renal failure. He is now on PD. He is here for removal of his permcath. Denies SHAH, fever, chills, recent illness, chest pain, SOB, abd pain, N/V, rest pain, claudication, other complaints. Allergies Coded Allergies: JOSSY Inhibitors (Verified Allergy, Unknown, UNKNOWN, 11/20/14) Losartan (Verified Allergy, Unknown, ., 11/20/14) NSAIDs (Verified Allergy, Unknown, ., 11/20/14) Home Medications Scheduled Amlodipine Besylate (Norvasc), 1 TAB PO DAILY Aspirin (Aspirin Ec), 81 PO DAILY Calcitriol (Calcitriol), 0.25 MCG PO MoWeFr@0900 Calcium Acetate (Phoslo 667 Mg), 3 CAPSULES PO WM Cyclosporine Modified (For Caesar (Cyclosporine Modified), 150 MG PO BID Ergocalciferol (Vitamin D), 50,000 UNITS PO DAILY Hydralazine HCl (Hydralazine HCl), 50 MG PO TID Sodium Bicarbonate (Sodium Bicarbonate), 650 MG PO BID Problem List Medical Problems: (1) Chart history of sleep apnea (2) Dyslipidemia (3) Dyslipidemia (4) ESRD (end stage renal disease) (5) HTN (hypertension) (6) Membranous glomerulonephritis (7) Renal vein thrombosis Surgical Problems: (1) S/p renal biopsy Surgical / Medical History Hx Cardiac Surgery: No Hx Abdominal Surgery: No Hx Cancer Surgery: No Hx Thoracic Surgery: No Hx Orthopedic: No Hx Urinary Tract Surgery: No HX Other Surgery: Yes Past Medical/Surgical History: High Cholesterol, Hypertension, Kidney Disease Family History Diabetes mellitus MOTHER FH: CAD (coronary artery disease) FATHER BROTHER Social History Smoking Status: Former Smoker (2 cigs per day x 20 years; quit 08/02/2015) Hx Tobacco Use In Past Year?: Yes Hx Alcohol Use - Type & Amnt: No Hx Substance Use -Type & Amnt: No Review of Systems Constitutional: No chills, No fever, No malaise Skin: No change in color Eyes: No visual changes ENMT: No sore throat Respiratory: No FOWLER, No cough, No hemoptysis, No short of breath Cardiovascular: No edema, No intermittent claudication Gastrointestinal: No abdominal pain, No nausea, No vomiting Neurologic: No dizziness, No headache, No lethargy, No numbness, No tingling Physical Exam Constitutional: General Apperance: well-nourished, well-developed Level of Distress: chronically ill (mildly) Ambulation: ambulating normally Psychiatric: Mental Status: active & alert, normal mood, normal affect Orientation: oriented except where noted, to time, to place, to person Memory: recent memory normal, remote memory normal Head: normocephalic, atraumatic Eyes: EOM: EOMI ENMT: normal ENT inspection, hearing grossly normal Neck: supple, trachea midline Lungs: Respiratory effort: no dyspnea Auscultation: breath sounds normal, no wheezing, no rales/crackles, no rhonchi Cardiovascular: Apical Impulse: not displaced Heart Auscultation: RRR, no murmurs, no rubs Peripheral Pulses: Pulses: full and equal, in all extremities except if noted Bruits: none appreciated Carotid Pulse: normal on the left, normal on the right Brachial Pulses: normal on the left, normal on the right Radial Pulse: normal on the left, normal on the right Femoral Pulse: normal on the left, normal on the right Posterior Tibialis Pulse: decreased on the left, decreased on the right Dorsalis Pedis Pulse: decreased on the left, decreased on the right Abdomen: Bowel Sounds: normal Inspection & Palpation: soft, non-distended, no tenderness, guarding & rebound Musculoskeletal: normal strength (5/5 throughout), normal tone Extremities: Upper Right: no cyanosis, no edema, no varicosities Upper Left: no cyanosis, no edema, no varicosities Lower Right: no cyanosis, no varicosities, edema (trace) Lower Left: no cyanosis, no varicosities, edema (trace) Neurologic: Cranial Nerves: grossly intact Sensation: grossly intact Assessment and Plan ASSESSMENT and PLAN: End stage renal disease Functioning PD catheter Plan: Patient is admitted for removal of his permcath. I have discussed the risks options and benefits of the procedure with the patient. The patient understands the risks options and benefits and agrees to the procedure.
[~2017-02-09 10:57] MED LIST changes: -CALC667C4 PO; +D5W AND 1/4NSS 1000 ML IV SCH; -LIDOCAINE HCL 2% 2 ML VIAL (20MG/ML) ONE; -PROPOFOL IV EMULSION 10 MG/ML 20 ML VIAL IV ONE; -SODIUM CHLORIDE 0.9% 500ML 500 ML IV ONE; -VTMD PO
[2017-02-09 11:40] VITALS: BP 145/78; PULSE 79; TEMP 37.1; O2SAT 96; Ht 177.8 cm; Wt 88.9 kg
[2017-02-09 12:55] VITALS: BP 145/78; PULSE 79; TEMP 37.1; O2SAT 96
[2017-02-09] MEDS ORDERED: LIDOCAINE HCL 1% 20 ML VIAL ONE (16:12)
--- NOTE | 2017-02-09 16:23 | History & Physical Bridge Note ---
H&P Re-Evaluation Bridge Note: I have examined the patient, reviewed the History & Physical and in the interval since the performance of the History & Physical I have noted the following changes of clinical significance: No changes noted
[2017-02-09] MEDS ORDERED: LIDOCAINE HCL 1% 20 ML VIAL INFIL ONE (17:12)
--- NOTE | 2017-02-09 17:15 | [facility] Operative Report ---
Operative Report Operative Date Feb 09, 2017. Pre-Operative Diagnosis Functioning PD catheter Post-Operative Diagnosis Same Procedure(s) Performed Removal of permcath Surgeon Arden Shell Mold Bonding Machine Operator Surgeon(s) Brandt Samuel MD Estimated Blood Loss 1 Findings catheter and cuff removed Specimens catheter Anesthesia Local Complication(s) None Disposition Indications This is a 52-year-old white male who has a peritoneal dialysis catheter in place. It is functioning nicely. He is here for PermCath removal. He understood the risks options and benefits and agrees to go ahead with this procedure. Description of Procedure The patient was taken to the angio suite and placed in the supine position. The right side of the neck, chest wall and catheter were prepped and draped in a sterile manner. Local anesthesia was then accomplished. Using sharp and blunt dissection, the cuff of the permcath was freed up from the surrounding fibrous tissue. The permcath and cuff were completely removed. Pressure was then applied and adequate hemostasis was obtained. A sterile dressing was then applied. The patient left the angio suite in good condition and tolerated the procedure well. I attest to the content of the Intraoperative Record and any orders documented therein. Any exceptions are noted below.
--- NOTE | 2017-02-09 17:19 | Discharge Instructions ---
Discharge Instructions Date of Service Feb 09, 2017. Visit Reason for Visit: End Stage Renal Disease Discharge Discharge Diagnosis / Problem: Functioning peritoneal catheter Discharge Goals Goal(s): Therapeutic intervention Activity Recommendations Activity Limitations: resume your previous activity Exercise/Sports Limitations: none Anesthesia . Post Anesthesia Instructions: If you have had General Anesthesia or IV Sedation: * Do not drive today. * Resume driving when surgeon permits. * Do not make important decisions or sign legal documents today. * Call surgeon for: 1. Temperature elevations greater than 101 degrees F. 2. Uncontrollable pain. 3. Excessive bleeding. 4. Persistent nausea and vomiting. 5. Medication intolerance (nausea, vomiting or rash). * For nausea and vomiting use only clear liquids such as: tea, soda, bouillon until nausea subsides, then gradually increase diet as tolerated. * If you have any concerns or questions, call your surgeon's office. If physician is unavailable and it is an emergency, call 911 or go to the nearest emergency room. . Instructions / Follow-Up Instructions / Follow-Up Call [phone] with any questions or concerns. SPECIAL CARE INSTRUCTIONS: Medications: * Continue to take your medications as directed. If you have been given a prescription for Plavix, please fill it immediately and take as directed. Incision Care: * Your puncture site may have some bruising and minor swelling for about one week. * You will have a small dressing covering your puncture site. You may remove the dressing after 24 hours and shower. You may let the warm soapy water run over it, but be sure to dry the puncture site well and keep it dry. * DO NOT IMMERSE THE INCISION IN A TUB/POOL/etc. UNTIL HEALED. * Puncture sites should be kept covered with a band-aid until it begins to heal. Restrictions: * Depending on whether you leg or arm was punctured to access the arteries, you will be required to lay flat, hold your arm still, or both, for about 4 hours after the procedure to prevent bleeding. * Limit your activity for the first 48 hours. You may walk and go up and down steps. Avoid excessive bending or movement at the puncture site. Possible Complications: * Excessive Swelling - after blood flow is improved you may notice increased swelling in the lower legs. This is a normal response. This usually depends on the amount of blockages in the leg, how long they have been there prior to your procedure and how much blood flow was restored. Elevating your legs will help to improve this. Please notify our office ([phone] ) if the swelling does not go away after lying in bed overnight. * Infection/Drainage/Bleeding - Drainage or bleeding from the puncture site should be minimal. If you have excessive bleeding or drainage, call our office ([phone]) right away. * Pain - You may experience some mild pain or soreness at your puncture site. If your pain does not improve, please contact our office ([phone]). Call your doctor and seek emergent treatment if you develop: * Temperature above 101 degrees * Any fever or chills * Any redness or purulent drainage from the puncture site * Any new dusky/blue colored toes or feet with coolness or sharp or aching pain. SKIN IRRITATION: * You may experience some redness and/or swelling in the area where radiation was administered. If any skin irritation occurs, please contact your family physician. FOLLOW UP VISIT: Keep any scheduled doctor appointments. Diet Recommendations Recommended Home Diet: resume previous diet Procedures Procedures Performed: Removal of permcath Pending Studies Studies pending at discharge: no Medical Emergencies . Who to Call and When: Medical Emergencies: If at any time you feel your situation is an emergency, please call 911 immediately. . Non-Emergent Contact Non-Emergency issues call your: Surgeon . . "Provider Documentation" section prepared by Surinder Her. .
[2017-02-09 17:25] VITALS: BP 148/87; PULSE 81; TEMP 37; O2SAT 96
[2017-02-09 17:55] VITALS: BP 134/89; PULSE 84; TEMP 37; O2SAT 95
== END 2017-02-09 17:55 | disposition home or self-care (01) ==
LOC: C.ACU 10:57
PROVIDERS: ATTEND Surgery Vascular Surgery
DX: N18.6 End stage renal disease (principal); N02.2 Recurrent and persistent hematuria with diffuse membranous glomerulonephritis; I12.0 Hypertensive chronic kidney disease with stage 5 chronic kidney disease or end stage renal disease; E78.5 Hyperlipidemia, unspecified; E78.00 Pure hypercholesterolemia, unspecified; Z79.82 Long term (current) use of aspirin; Z87.891 Personal history of nicotine dependence; Z83.3 Family history of diabetes mellitus; Z82.49 Family history of ischemic heart disease and other diseases of the circulatory system